=== PATIENT | male | born 1980 | race Caucasian/White ===

== ENCOUNTER 2020-02-13 | Emergency (ER) | payer OTHER ==
[2020-02-13] MEDS ORDERED: CEPHALEXIN500 M1 PO ×2 (09:00→09:32)
[2020-02-13] MEDS ORDERED: SILVER SULFA1 % EX ×2 (09:00→09:32)
== END 2020-02-13 09:33 | disposition home or self-care (01) | DRG 934 ==
PROC: 2W2DX4Z Dressing of Left Lower Arm using Bandage (ICD-10-PCS; principal; 2020-02-13)
DX: T22.312A Burn of third degree of left forearm, initial encounter (principal); T31.0 Burns involving less than 10% of body surface; W86.0XXA Exposure to domestic wiring and appliances, initial encounter; Y93.89 Activity, other specified; Y92.89 Other specified places as the place of occurrence of the external cause; Y99.0 Civilian activity done for income or pay